=== PATIENT | male | born 1965 | race Two or more races ===

== ENCOUNTER 2018-05-23 00:56 | Emergency (ER) | payer SELFPAY ==
[~2018-05-23] VITALS: Ht 157.5 cm; Wt 77.2 kg
[2018-05-23] MEDS ORDERED: proparacaine 0.5% ophthalmic drops 15ml EACHEYE ONE (01:30)
[2018-05-23 04:46] VITALS: BP 129/79
== END 2018-05-23 02:20 | disposition home or self-care (01) ==
LOC: ER 00:58
DX: T65.893A Toxic effect of other specified substances, assault, initial encounter (principal); Y92.009 Unspecified place in unspecified non-institutional (private) residence as the place of occurrence of the external cause
CPT/HCPCS: 99282